=== PATIENT | male | born 1980 | race Caucasian/White ===

== ENCOUNTER → 2021-02-09 16:42 | Outpatient (CLI) | payer OTHER, SELFPAY ==
--- NOTE | 2021-02-09 | DI.MRI.S_ITS ---
PROCEDURE: MR WRIST LT WO CON INDICATIONS: LEFT WRIST PAIN TECHNIQUE: Noncontrast coronal proton density fast spin echo and T2 fast spin echo with fat saturation; coronal 3-D gradient echo, axial T1 spin echo and T2 fast spin echo with fat saturation, sagittal T1 spin echo through the wrist. COMPARISON: None. FINDINGS: Image quality: There is mild inhomogeneous fat saturation the the. Bones and cartilage: There is bone marrow edema within the volar aspects of the hook of hamate and trapezium consistent with bone contusions. No associated discrete fracture identified. The carpal bones are normally aligned. No evidence for avascular necrosis. Overlying cartilage surfaces appear normal. Carpal ligaments: The scapholunate and lunotriquetral ligaments appear intact. In the absence of intra-articular contrast, the extrinsic carpal ligaments are not well identified. There is edema and mild fluid along the dorsal ulnar aspect of the wrist suggestive of a capsular sprain. The findings are suspicious for sprains of the dorsal intercarpal ligament and possibly the dorsal radiocarpal and ulnocarpal ligaments. On sagittal images, the pisohamate ligament appears intact. Triangular fibrocartilage complex: The triangular fibrocartilage demonstrates mild intermediate signal adjacent to its radial attachment suggestive of mild degeneration. No definite perforation or tear. The adjacent meniscal homolog appears normal in the absence of intra-articular contrast. The extensor carpi ulnaris tendon is normal in location and morphology. Tendons and soft tissues: The carpal tunnel structures appear normal, including the median nerve. The ulnar nerve appears normal within Guyon's canal. All six extensor tendon compartments demonstrate normal morphology, without pathologic tendon sheath fluid. No soft tissue ganglion cysts. IMPRESSION: 1. Bone contusions of the volar aspects of the hook of hamate and trapezium without discrete associated fractures. 2. Mild edema and fluid along the dorsal ulnar aspect of the wrist likely reflecting a capsular sprain with suspected ligamentous sprains of the dorsal intercarpal ligament and possibly the dorsal radiocarpal and ulnar carpal ligaments which are not well evaluated. Dictated by: Kenny Aggarwal M.D. on 02/12/2021 at 9:07 Approved by: Kenny Aggarwal M.D. on 02/12/2021 at 9:36
== END ==
PROVIDERS: PCP Family Medicine; Referring Provider Family Medicine; Visit Provider Family Medicine
DX: M25.532 Pain in left wrist (principal); S60.212A Contusion of left wrist, initial encounter
CPT/HCPCS: 73221

== ENCOUNTER → 2021-07-18 09:20 | Outpatient (CLI) | payer OTHER, SELFPAY ==
[2021-07-18 12:11] LABS: COVID19 -Nasal RAPID Negative (Negative)
== END ==
PROVIDERS: PCP Family Medicine; Visit Provider Physician Assistant
DX: Z20.822 Contact with and (suspected) exposure to COVID-19 (principal)
CPT/HCPCS: 87635

== ENCOUNTER 2021-07-19 09:03 | Day surgery (SDC) | payer OTHER, SELFPAY ==
[2021-07-16 10:51] VITALS: BMI 27.1
[2021-07-19] VITALS (8 sets, daily range): BP systolic 108–136; BP diastolic 66–88; PULSE 62–96; RESP 11–18; TEMP 36.7–36.9; O2SAT 92–99; BMI 27.1
[2021-07-19] MEDS: LACTATED RINGERS 1,000 ML 42 ML IV ×2 (09:45→12:38)
[2021-07-19] MEDS: OXYMETAZOLINE NASAL SPRAY 15 ML 2 SPRAYS NASAL ×2 (10:01→12:28)
--- NOTE | 2021-07-19 11:11 | PM.PREOP ---
Pre-operative Note Interval Note History & Physical reviewed/Exam performed by Physician: Yes Changes to H&P: No
--- NOTE | 2021-07-19 11:11 | PM.HP.1 ---
History of Present Illness History of Present Illness Date Patient Seen: 07/19/21 Time Patient Seen: 11:11 Chief complaint: Nasal airway obstruction Narrative: 40-year-old male with chronic nasal obstruction and right septal deviation, inferior turbinate hypertrophy and internal nasal valve restriction, presents for septoplasty, turbinate reduction, and possible internal nasal valve release. He was last seen in clinic 05/28/2021, no interval changes, continues fullface CPAP for his BRIGID. No recent cough, cold, or fever. Patient History Medical History Bilateral tinnitus Migraines Nasal congestion Nasal septal deviation BRIGID (obstructive sleep apnea) PTSD (post-traumatic stress disorder) Sinusitis Surgical History History of photorefractive keratectomy (PRK) History of vasectomy Hx of left inguinal hernia repair (08/23/16) Hx of tonsillectomy S/P nasal endoscopy with nasal polypectomy (05/29/21) Family & Social History Social History: household members spouse Tobacco & Substance use: Smoking Status Former smoker alcohol intake current alcohol intake frequency other Substance Use Type does not use Meds Home Medications and Allergies Home Medications Medication Instructions Recorded Confirmed Type erenumab-aooe 140 mg/mL See Rx Instructions .ROUTE .COMPLEX 07/19/21 07/19/21 History subcutaneous auto-injector (Aimovig Autoinjector) rizatriptan 10 mg disintegrating 10 mg PO PRN PRN 07/19/21 07/19/21 History tablet tamsulosin 0.4 mg capsule 0.4 mg PO DAILY 07/19/21 07/19/21 History Allergies Allergy/AdvReac Type Severity Reaction Status Date / Time No Known Drug Allergies Allergy Verified 07/19/21 09:49 Review of Systems Review of Systems Narrative: Negative except as mentioned in the HPI Exam Vital Signs (past 8 hours): - 07/19/21 09:34 Temperature 98.4 F Pulse Rate 64 Respiratory Rate 18 Blood Pressure 108/66 Pulse Oximetry 98 Oxygen Delivery Method Room Air Narrative Exam Narrative: Well-developed well-nourished male in no acute distress heart regular rate and rhythm without murmur, lungs clear to auscultation bilaterally Assessment & Plan Assessment & Plan narrative: Assessment: Nasal airway obstruction, septal deviation, inferior turbinate hypertrophy, internal nasal valve restriction Plan: Following discussion of the material risks benefits complications and alternatives, the patient elected to proceed with septoplasty, turbinate reduction, and possible internal nasal valve release. Time Spent With Patient Critical Care time: I spent a total of [] minutes of critical care time on this patient's care today; this time is exclusive of procedural time.
--- NOTE | 2021-07-19 11:13 | PM.OP.1 ---
Operative Date/Time/Diagnoses Date of procedure: 07/19/21 Time of procedure: 13:02 Pre-op diagnosis: Nasal airway obstruction, septal deviation, inferior turbinate hypertrophy, internal nasal valve restriction Post-op diagnosis: same Procedure & Clinicians Procedure: 1. Septoplasty 2. Bilateral inferior turbinate reduction via intramural cautery 3. RIGHT Internal Nasal Valve reduction Same procedure as scheduled: Yes Indications: 40-year-old male with the above diagnoses incompletely managed with medical therapy presents for the above procedures. Following discussion of the material risks benefits complications and alternatives, he elected to proceed. Surgeon: Juarez Temple Click Yes if Unassisted: Yes Anesthesia Type: General and Local Operative Notes Findings: 2+ right septal deviation, left greater than right inferior turbinate hypertrophy, persistently compromised RIGHT INV after septoplasty, therefore reduced. Closure Type: primary Estimated Blood Loss (mL): 50 Procedure in detail: Following identification and confirmation of consent as well as preoperative Afrin nasal spray, the patient was brought to the operating room suite and placed in the supine position. General endotracheal anesthesia was administered. I infiltrated the septum widely bilaterally with 1% lidocaine 1 100,000 epinephrine followed by temporary packing with cotton with Afrin and 4% lidocaine. Following sterile prep and drape, the packing was removed and I performed a right glenn-transfixion incision, elevated the right mucoperichondrial and mucoperiosteal flap. I disarticulated near the bony/cartilaginous junction and elevated the left mucoperiosteal flap. Deviated portions of the perpendicular plate of the ethmoid and vomer were resected. The residual quadrilateral cartilage was further straightened by trimming it inferiorly as well as reducing the maxillary crest. A 2 mm strip of cartilage paralleling the residual 1 cm dorsal and caudal strut was resected to further straighten the quadrilateral cartilage. The hemitransfixion incision was closed with interrupted 5 0 chromic followed by a running 4 0 plain gut mattress suture to reapproximate the septal flaps. At case completion, Puente air-channel silastic splints were placed bilaterally, sutured anteriorly with a single 4 0 nylon. The head of each inferior turbinate had been previously infiltrated with additional local anesthetic and a 25 gauge spinal needle was used to impale the length of the turbinate, with cautery on a setting of 15 activated on slow withdrawal over 2 passes. The turbinates were then outfractured. After the septoplasty was completed, the RIGHT INV was persistently compromised. I infiltrated the scroll region on the right with additional local anesthetic, and a 15 blade incised the mucosa until the caudal edge of the upper lateral cartilage was exposed. 2mm was resected, including some overlying mucosa, to restore patency of the valve. Interrupted 5-0 chromic then closed the mucosa. The procedure completed, sponge and needle counts were correct and the patient was extubated in the operating room and taken to recovery room in stable condition without known complication. Postoperative care: Nasal saline every hour while awake, Vaseline or Polysporin to the nostrils at all times, begin irrigations t.i.d. beginning pod 1. Humidifier at the bedside blowing on the face. Tylenol alternating with Advil for pain control, oxycodone if necessary for breakthrough pain. Complications: none Post-operative Condition: stable Disposition: same day surgery Plan for aftercare: Nasal saline every hour while awake, begin irrigations t.i.d. tomorrow if desired. Polysporin to the nostrils at all times, Tylenol alternating with Advil for pain control, oxycodone for breakthrough pain. Elevate head of bed, no nose blowing, no straining for 2 weeks. Follow-up in 1 week for nasal splint removal.
--- NOTE | 2021-07-19 11:46 | SUR.OPER ---
Supine on padded OR bed, head on pillow, arms padded and tucked at sides, legs uncrossed, safety belt at thigh, tape over blanket over lower legs .
[2021-07-19] MEDS: LIDOCAINE 1% W/EPI 20 ML INJ (11:56)
[2021-07-19] MEDS: LIDOCAINE 4% SOLN 50 ML 20 ML TOP (11:57)
[2021-07-19] MEDS: BACITRACIN OINT 0.9 GM PCKT 1 APPLIC TOP (12:29)
[2021-07-19] MEDS: fentaNYL 100 MCG/2 ML INJ IV ×2 (13:35→13:41)
[2021-07-19] MEDS: OXYCODONE/ACETAMINOPHEN 5/325 TABLET 1 TAB PO ×2 (13:38→14:38)
[2021-07-19] MEDS: SUMAtriptan 25 MG TABLET 100 MG PO (14:19)
--- NOTE | 2021-07-19 15:07 | SUR.PHASEII ---
1430 When out of phase1 had headache of 7-8/10. Second percocet given, snacks given and ice behind neck. After 15 min stated felt much better. Sent home at [id number]
== END 2021-07-19 15:05 | disposition home or self-care (01) ==
PROVIDERS: PCP Physician Assistant; Referring Provider Otolaryngology; Visit Provider Otolaryngology
PROC: (CPT 30520; principal; 2021-07-19 10:45)
DX: J98.8 Other specified respiratory disorders (principal); J34.2 Deviated nasal septum; J34.3 Hypertrophy of nasal turbinates; G47.33 Obstructive sleep apnea (adult) (pediatric); F43.10 Post-traumatic stress disorder, unspecified; G43.909 Migraine, unspecified, not intractable, without status migrainosus; J34.89 Other specified disorders of nose and nasal sinuses
CPT/HCPCS: 30520; 30802; A9270; J0330; J1100; J2405; J2704; J3010

== ENCOUNTER 2023-06-16 09:19 | Day surgery (SDC) | payer OTHER, SELFPAY ==
[2023-06-16] VITALS (8 sets, daily range): BP systolic 94–116; BP diastolic 62–80; PULSE 50–75; RESP 10–17; TEMP 36.4–36.6; O2SAT 95–99; BMI 26.9
[2023-06-16] MEDS: LACTATED RINGERS 1,000 ML 42 ML IV (09:50)
--- NOTE | 2023-06-16 10:42 | PM.HP.1 ---
History of Present Illness History of Present Illness Date Patient Seen: 06/16/23 Time Patient Seen: 10:43 Chief complaint: Colonoscopy Narrative: I reviewed my recent office note from March. No significant changes. I was unable to access the main body of the note secondary to the computer related issues. The main body of the note is still stuck in Cyber space. I was able to see the assessment and plan. Despite max dose Linzess, regular magnesium, intermittent MiraLax-he is still struggling with constipation. Even with the bowel prep last night he did not have any output until this morning. This has all been going on since about 2006. Diagnostic colonoscopy is pursued today. [facility] Medical History Bilateral tinnitus Migraines BRIGID (obstructive sleep apnea) PTSD (post-traumatic stress disorder) Nasal septal deviation Nasal congestion Sinusitis Surgical History S/P nasal endoscopy with nasal polypectomy (05/29/21) Hx of tonsillectomy History of photorefractive keratectomy (PRK) Hx of left inguinal hernia repair (08/23/16) History of vasectomy Social History household members: spouse Smoking Status: Former smoker alcohol intake: current Meds Home Medications and Allergies Home Medications Medication Instructions Recorded Confirmed Type erenumab-aooe 140 mg/mL See Rx Instructions .Route .COMPLEX 07/19/21 06/16/23 History subcutaneous auto-injector (Aimovig Autoinjector) rizatriptan 10 mg disintegrating 10 mg PO PRN PRN Pain, Severe 07/19/21 06/16/23 History tablet tamsulosin 0.4 mg capsule 0.4 mg PO DAILY 07/19/21 06/16/23 History citalopram 10 mg tablet 10 mg PO DAILY 06/16/23 06/16/23 History fluticasone propionate 50 1 spray intranasal BID 06/16/23 06/16/23 History mcg/actuation nasal spray,suspension linaclotide 290 mcg capsule 290 mcg PO DAILY 06/16/23 06/16/23 History (Linzess) Allergies Allergy/AdvReac Type Severity Reaction Status Date / Time No Known Drug Allergies Allergy Verified 06/16/23 09:34 Review of Systems Review of Systems ROS: Yes All systems reviewed with the patient and are negative except as otherwise documented Exam Vital Signs (past 8 hours): - 06/16/23 09:42 Temperature 97.5 F L Pulse Rate 75 Respiratory Rate 17 Blood Pressure 116/80 Pulse Oximetry 96 Oxygen Delivery Method Room Air Oxygen Delivery Method Room Air Const General: cooperative HENMT Head: normal to inspection Eyes General: appearance normal, both eyes and all related structures Neck Neck: normal visual inspection Chest Chest: normal inspection of the chest Resp Effort & Inspection: normal respiratory effort Cardio Rate: regular rate GI Inspection: normal to inspection Skin General: no rashes or lesions noted Neuro General: patient alert and patient awake Extrem General: normal to inspection and no pedal edema Psych Appearance: grossly normal Assessment & Plan Assessment & Plan narrative: 42-year-old male with approximately 17 years of severe IBS related constipation type symptoms. Diagnostic colonoscopy is pursued today to account for the refractory nature to his symptoms. He prefers to be fully sedated for any type of rectal examination.
--- NOTE | 2023-06-16 10:45 | PM.PREOP ---
Pre-operative Note Interval Note History & Physical reviewed/Exam performed by Physician: Yes Changes to H&P: No ASA Class (for procedural sedation): II
--- NOTE | 2023-06-16 12:36 | PM.OP.COLON ---
Operative Date/Time/Diagnoses Date of procedure: 06/16/23 Time of procedure: 12:36 Pre-op diagnosis: Severe constipation Post-op diagnosis: same Procedure & Clinicians Study performed: Colonoscopy Same procedure as scheduled: Yes Indications: Severe constipation Surgeon: Karthik Florian Procedure Notes SCOAP/Timeout: Done Procedure in detail: After the risks and benefits were explained, written and verbal informed consent was obtained. The patient was brought into the procedure room and placed into the left lateral decubitus position. Please see anesthesia notes for sedation details. Digital rectal examination was accomplished. The scope was introduced into the patient and advanced under direct visualization to the cecum as identified by the appendiceal orifice and ileocecal valve. The scope was slowly withdrawn to carefully examine the mucosa for any defects or lesions. Comprehensive imaging was accomplished throughout the rectum including the dentate line. The colon was decompressed, the scope was then removed from the patient who tolerated the procedure well. Adult colonoscope Bowel prep adequate Scope withdrawal time: 10 minutes Sedation minutes: 19 Specimen(s): none sent Complications: none Impression: There were some scattered diverticula in the left colon. There was evidence of minimal melanosis coli. No significant polyps mass lesions strictures or inflammatory features identified throughout. The terminal ileum was interrogated and appeared visually normal. On digital rectal examination under anesthesia, rectal tone was normal. No stricturing no mass lesions. Minimal internal hemorrhoidal cushions grade 1 at best. Endoscopic diagnosis 1. Diverticulosis 2. Mild melanosis coli 3. Grade 1 internal hemorrhoids 4. Otherwise visually normal colonoscopy Post-procedure Plan for aftercare: 1. Continue with aggressive bowel regimen as before. 2. Consider periodic [id number] fleets enema intervention to clear out the left colon and perhaps be a little more responsive to the oral anti constipation regimen. 3. Follow up GI clinic 6-8 weeks. Disposition: PACU
== END 2023-06-16 13:14 | disposition home or self-care (01) ==
PROVIDERS: PCP Physician Assistant; Referring Provider Internal Medicine Gastroenterology; Visit Provider Internal Medicine Gastroenterology
PROC: 0DJD8ZZ Inspection of Lower Intestinal Tract, Via Natural or Artificial Opening Endoscopic (ICD-10-PCS; CPT 45378; principal; 2023-06-16 10:30)
DX: K59.09 Other constipation (principal); K57.30 Diverticulosis of large intestine without perforation or abscess without bleeding; K64.0 First degree hemorrhoids; K63.89 Other specified diseases of intestine
CPT/HCPCS: 45378; J2704